=== PATIENT | male | born 1960 | race Caucasian/White ===

== ENCOUNTER 2016-12-03 15:45 | Outpatient (CLI) | payer OTHER ==
--- NOTE | 2016-12-03 17:02 | DIAGNOSTIC IMAGING REPORT ---
PROCEDURE: US VENOUS - BILATERAL EXT INDICATION: DEEP VEIN THROMBOSIS OF FEMORAL VEIN OF LLE TECHNIQUE: Duplex sonography of the deep venous system in both lower extremities was performed. Compression and augmentation techniques were used. COMPARISON: Venous ultrasound 10/27/2016 and 05/25/2016 FINDINGS: The clot now extends throughout the superficial femoral vein to the saphenous femoral junction. There is trace flow detected in the mid superficial femoral vein but no flow detected proximal or distal. There is no significant recanalization of the clot popliteal vein. Anterior tibial and peroneal veins demonstrate a venous flow. There is expansile clot in the posterior tibial and gastrocnemius muscle risk lead vein as seen previously. Greater saphenous and profunda femoral veins appear patent. IMPRESSION: 1. No change in deep venous thrombosis in left lower extremity. 2. Right leg negative for DVT
--- NOTE | 2016-12-03 17:02 | DIAGNOSTIC IMAGING REPORT ---
PROCEDURE: US VENOUS - BILATERAL EXT INDICATION: DEEP VEIN THROMBOSIS OF FEMORAL VEIN OF LLE TECHNIQUE: Duplex sonography of the deep venous system in both lower extremities was performed. Compression and augmentation techniques were used. COMPARISON: Venous ultrasound 10/27/2016 and 05/25/2016 FINDINGS: The clot now extends throughout the superficial femoral vein to the saphenous femoral junction. There is trace flow detected in the mid superficial femoral vein but no flow detected proximal or distal. There is no significant recanalization of the clot popliteal vein. Anterior tibial and peroneal veins demonstrate a venous flow. There is expansile clot in the posterior tibial and gastrocnemius muscle costume director vein as seen previously. Greater saphenous and profunda femoral veins appear patent. IMPRESSION: 1. No change in deep venous thrombosis in left lower extremity. 2. Right leg negative for DVT
== END 2016-12-03 23:00 ==
LOC: US SRH 15:45
DX: I82.412 Acute embolism and thrombosis of left femoral vein (principal)